=== PATIENT | male | born 1940 | race Caucasian/White ===

== ENCOUNTER 2022-02-11 14:50 | Observation (INO) | payer MEDICARE, SELFPAY ==
[2022-02-11] VITALS (17 sets, daily range): BP systolic 127–172; BP diastolic 63–82; PULSE 68–84; RESP 14–16; TEMP 36.6–37.1; O2SAT 93–97
--- NOTE | ~2022-02-11 | US_ITS ---
Procedure: Duplex Doppler examination of the bilateral carotids. Indication: Confusion Technique: Real time, color-flow and pulse wave Doppler examination of the bilateral carotids was performed. Findings: Phipps scale ultrasonography of the right neck demonstrated no significant plaque. There was demonstrat ion of normal color-flow and Doppler waveforms within the right common, internal and external carotid arteries. The peak systolic velocities in the right common, internal and external carotid arteries w ere demonstrated to be 91 cm/sec, 72 cm/sec and 100 cm/sec respectively. The right ICA/CCA ratio was 0.8. The proximal right internal carotid artery demonstrates 0% stenosis relative to the normal dista l artery lumen diameter. Phipps scale sonography of the left neck demonstrated no significant plaque. There was demonstration of normal color-flow and wave forms within the left common, internal and external carotid arteries. The peak systolic velocities in the left common, internal and external carotid arteries were demonstrate d to be 89cm/sec, 101 cm/sec and 123 cm/sec respectively. The left ICA/CCA ratio was 1.1. The proxima l left internal carotid artery demonstrates 0% stenosis relative to the normal distal artery lumen di ameter. There was antegrade flow demonstrated in the bilateral vertebral arteries. Impression: No hemodynamically significant stenosis of the bilateral internal carotid arteries. Antegrade flow in the bilateral vertebral arteries. Note: The methodology used is an indirect measurement validated against a direct method (such as the NASCET criteria) that compares diameters at the stenosis to the distal ICA. Reviewed, dictated and finalized at location [] ROPATHIC PHYSICIAN Impression: No hemodynamically significant stenosis of the bilateral internal carotid arter ies. Antegrade flow in the bilateral vertebral arteries. Note: The methodology used is an indirect measurement validated against a direct meth od (such as the NASCET criteria) that compares diameters at the stenosis to the distal ICA.
--- NOTE | ~2022-02-11 | XR_ITS ---
Clinical Indication: Altered mental status AP and lateral views of the chest: Comparison: None Findings: The lungs are clear, without evidence of focal consolidation or pleural effusion. Cardiome diastinal silhouette is within normal limits. Bones and soft tissues are unremarkable. Impression: Normal chest. Reviewed, dictated and finalized at location [] NG INSTRUCTOR Impression: Normal chest.
--- NOTE | ~2022-02-11 | US_ITS ---
Renal-Bladder ultrasound Clinical History: Acute renal failure Technique: Real-time sonographic imaging of the kidneys and urinary bladder was performed. Findings: The right kidney measures 11.0 cm in length and the left kidney measures 11.3 cm. There is no hydronephrosis or renal calculus identified. Renal cortical echogenicity is within normal limits. No centimeters solid renal mass lesion is identified. The urinary bladder is moderately distended at the time of this exam. No intraluminal echoes are iden tified. No abnormal wall thickening is seen. Prostate gland is enlarged, measuring 6.9 cm in transver se diameter. Impression: Unremarkable ultrasound of the kidneys and urinary bladder. Enlarged prostate gland. Reviewed, dictated and finalized at location [] ROOM SALESPERSON Impression: Unremarkable ultrasound of the kidneys and urinary bladder. Enlarged prostate gland.
--- NOTE | ~2022-02-11 | CT_ITS ---
EXAMINATION: CT brain wo con DATE: 02/11/2022 16:35 INDICATION: hallucinations . TECHNIQUE: Computed tomography (CT) of the head was performed without intravenous contrast. The mA wa s adjusted according to patient size. Iterative reconstruction technique was employed. The dose-lengt h product was 681.00 mGy-cm. COMPARISON: None. FINDINGS: No acute intracranial hemorrhage or extra-axial fluid collection. No hydrocephalus, mass, or herniation. No acute ischemic infarct. Unremarkable dural venous sinus attenuation. No acute osseous abnormality. Small right mastiod effusion, the remaining aerated spaces are clear. Mild atrophy and chronic white matter change. Atherosclerotic intracranial calcification. Right cochl ear implant. Right partial mastoidectomy. IMPRESSION: No acute intracranial process. Reviewed, dictated and finalized at location K. SHOE WORKER
--- NOTE | 2022-02-11 14:56 | ECG_ITS ---
Measurements Intervals [place] Rate: 68 P: 59 IL: 171 QRS: -61 QRSD: 108 T: 49 QT: 369 QTc: 395 Interpretive Statements SINUS RHYTHM LEFT ANTERIOR FASCICULAR BLOCK [QRS AXIS <= -45, QR IN I, RS IN II] MODERATE VOLTAGE CRITERIA FOR LVH, CONSIDER NORMAL VARIANT [MEETS CRITERIA IN ONE OF: R(aVL), S(V1), R(V5), R(V5/V6)+S(V1)] POOR R-WAVE PROGRESSION NO PREVIOUS ECG AVAILABLE FOR COMPARISON Electronically Signed On 02-11-2022 15:51:04 CONSERVATION WORKER by Barbara Cool M.D.
[2022-02-11 15:22] LABS: Basophils Absolute Auto 0.1 K/mm3 (0.0-0.1); Basophils Percent Auto 0.6 % (0.2-1.2); Eosinophils Percent Auto 0.2 % (0-4.4); Hematocrit 42.7 % (42.0-52.0); Hemoglobin 14.3 g/dL (14.0-18.0); Immature Granulocyte Absolute 0.04 K/mm3 (0.00-0.031); Immature Granulocyte Percent A 0.5 % (0-0.5); Lymphocytes Absolute Auto 1.24 K/mm3 (0.9-3.2); Lymphocytes Percent Auto 15.4 % (18.3-44.2); Mean Corpuscular HGB Conc 33.5 g/dl (32-36); Mean Corpuscular Hemoglobin 32.4 pg (26-34); Mean Corpuscular Volume 96.6 fl (80-100); Mean Platelet Volume 10.4 fl (7.4-10.4); Monocytes Absolute Auto 0.9 K/mm3 (0.1-0.6); Monocytes Percent Auto 11.4 % (2.6-8.5); Neutrophils Absolute Auto 5.8 K/mm3 (1.3-6.7); Neutrophils Percent Auto 71.9 % (45.5-73.1); Platelet Count Result 236 k/mm3 (150-375); Red Blood Count 4.42 M/mm3 (4.6-6.20); Red Cell Distribution Width 13.1 % (11.5-14.5)
[2022-02-11 15:34] LABS: Alanine Aminotransferase 15 U/L (6-50); Albumin Level 4.3 g/dL (3.5-5.1); Alkaline Phosphatase 71 U/L (38-126); Anion Gap 7 mmol/L (8-16); Aspartate Amino Transferase 24 U/L (17-59); Bilirubin,Total 0.6 mg/dL (0.2-1.3); Blood Urea Nitrogen 22 mg/dL (9-20); Calcium 8.6 mg/dL (8.4-10.2); Carbon Dioxide 26 mmol/L (22-30); Chloride 109 mmol/L (98-107); Estimated CRCL calculation 31 ml/min; Estimated Glomerular Filt Rate 39; Glucose 104 mg/dL (65-110); Potassium 3.8 mmol/L (3.4-5.0); Sodium 142 mmol/L (137-145)
[2022-02-11 15:35] LABS: INR 1.1; Prothrombin Time 13.7 Seconds (11.1-14.7)
[2022-02-11 15:36] LABS: Partial Thromboplastin Time 27.4 SECONDS (22.3-36.8)
--- NOTE | 2022-02-11 15:37 | ED.AMS ---
HPI - Altered Mental Status General Chief Complaint: Altered Mental Status Stated Complaint: confused, neuro Time Seen by Provider: 02/11/22 15:36 Source: family Mode of arrival: EMS Limitations: altered mental status History of Present Illness HPI narrative: Patient is an 81-year-old male with a history of BPH presenting to the emergency department for evaluation of auditory hallucinations. Patient states he has had hallucinations daily since his January 18. Patient reports he has not been sleeping well secondary to these hallucinations. He often will hear his talking to him, states that she cannot get into heaven. States that she wants to return. He says that a few nights ago she told him that she was at the front door and then when the patient went to the front door nobody was there. Patient reports decreased appetite since his passed. Patient states that he over the past few days has also started to hear another voice that he states is a 36-year-old female with children who is able to speak to him through his cochlear implants. He denies any homicidal or suicidal ideation. Patient states he has not been to a primary care physician in greater than a decade. 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 Patient's son and [id number] are present. Patient is currently alert and oriented to person, place, to time. He denies any acute discomfort or pain. He denies fever, chills, cough, shortness of breath. He denies any new medications. Related Data Allergies Allergy/AdvReac Type Severity Reaction Status Date / Time Sulfa (Sulfonamide Allergy Mild Verified 06/06/09 12:38 Antibiotics) Review of Systems Review of Systems: CONSTITUTIONAL: Denies fever, chills, or sweats. EYES: Denies visual changes, redness, or discharge. ENT: Denies rhinorrhea, congestion, sore throat, or otalgia. CARDIOVASCULAR: Denies chest pain, palpitations, or edema. RESPIRATORY: Denies cough or dyspnea. GASTROINTESTINAL: Denies abdominal pain, nausea, vomiting, or diarrhea. GENITOURINARY: Denies dysuria or hematuria. SKIN: Denies rash or itching. MUSCULOSKELETAL: Denies back pain, joint pain, or myalgia. NEUROLOGIC: Denies headache, numbness, or weakness. PSYCHIATRIC: Denies anxiety or depression. Reports auditory hallucinations. FOR[facility]LY [facility] Past Medical History Medical History (Updated 02/11/22 @ 19:17 by Vale Patel MD) BPH (benign prostatic hyperplasia) Cochlear implant in place Social History Social History (Updated 02/11/22 @ 16:14 by Vale Patel MD) Smoking status: Smoker, status unknown Alcohol intake: never Substance use: never Living arrangements: alone Occupation/Education: retired Gender identity (if verbalized by the patient): Male Exam Narrative: GENERAL: Awake, alert, conversant HEAD: Normocephalic, atraumatic. EYES: PERRLA and EOMI. ENT: Nares clear, no rhinorrhea or epistaxis. Mucous membranes moist. Cochlear implants bilaterally. NECK: Supple. CHEST: No respiratory distress, breathing even and non labored HEART: Regular rate, sinus rhythm ABDOMEN:Non distended, non tender EXTREMITIES: Normal range of motion. No edema. SKIN: Warm, dry, no rash. NEURO:No focal deficits. Alert and oriented x4, patient is ambulatory with a narrow base, steady gait Course Vital Signs Vital signs: Vital Signs Temperature 37.1 C 02/11/22 14:53 Pulse Rate 84 02/11/22 14:53 Respiratory Rate 14 02/11/22 14:53 Blood Pressure 172/79 H 02/11/22 14:53 Pulse Oximetry 97 02/11/22 14:53 Oxygen Delivery Room Air 02/11/22 14:53 Temperature 37.1 C 02/11/22 14:53 Pulse Rate 84 02/11/22 14:53 Respiratory Rate 14 02/11/22 14:53 Blood Pressure 134/63 02/11/22 17:46 Pulse Oximetry 97 02/11/22 18:02 Oxygen Delivery Room Air 02/11/22 14:53 MDM - Altered Mental Status MDM Narrative Medical decision m
--- NOTE | 2022-02-11 15:46 | PC.NURSE ---
EDP at bedside to assess pt. .
--- NOTE | 2022-02-11 16:26 | PC.NURSE ---
Patient off unit to CT>
[2022-02-11 17:33] LABS: Barbiturate Screen Urine Negative (Negative)
[2022-02-11 17:36] LABS: Amphetamine Screen Urine Negative (Negative); Benzodiazepines Screen Urine Negative (Negative); Cannabinoid Screen Urine Negative (Negative); Cocaine Screen Urine Negative (Negative); Methadone Screen Urine Negative (Negative); Opiate Screen Urine Negative (Negative); Phencyclidine Screen Urine Negative (Negative)
[2022-02-11 17:41] LABS: Add Urine Microscopic? YES; Appearance Urine Clear (Clear); Bilirubin Urine Negative (Negative); Blood Urine Negative (Negative); Color Urine Light Yellow (Yellow); Glucose Urine UA 1+ mg/dL (Negative); Ketones Urine Trace mg/dL (Negative); Leukocyte Esterase Ur Negative LEU/UL (Negative); Nitrate Urine Negative (Negative); Protein Urine Negative (Negative); Specific Grav Ur 1.025 (1.001-1.035); Urobilinogen Urine 0.2 mg/dL (<2.0); pH Urine 5.5 (5.0-9.0)
[2022-02-11 17:49] LABS: Mucus Urine Rare /lpf; Squamous Epithelial Cell Urine Rare /hpf (Few); WBC Urine 0-3 /hpf
[2022-02-11 18:01] LABS: Influenza A QL RT-PCR Negative (Negative); Influenza B QL RT-PCR Negative (Negative); RSV RNA, RT-PCR Negative (Negative); SARS-CoV-2 RNA PCR Negative
--- NOTE | 2022-02-11 20:19 | PC.NURSE ---
Dr. Chance at bedside to update to the family.
--- NOTE | 2022-02-11 21:01 | PC.NURSE ---
Hospitalist at bedside to assess pt.
--- NOTE | 2022-02-11 21:34 | PM.IMHP ---
H&P: HPI History of Present Illness Date/Time: 02/11/22 21:34 Chief Complaint: Auditory hallucination Narrative: This is an 81-year-old male patient who resides home alone. The patient came to the emergency room to be evaluated for auditory hallucinations. The patient stated that he has had these hallucinations since his January 18. The patient has not been sleeping very well due to the solution a stents. He often will hear his talking to him seeing that she cannot get in to have an. She wants to return home. Patient has had decreased appetite decreased sleep since his . He also stated that he was another voice of a 36-year-old female patient with children who wants to speak to him through his cochlear implant. He denies any homicidal or suicidal ideation. However the patient stated that he does cry every day since his . 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 The patient has tried multiple things to try to sleep including Ambien and melatonin as well as nighttime Tylenol and has not been able to sleep. The patient has not seen a physician for over 10 years. He does not have a primary care doctor. The patient will like to go to grief therapy but does not have a primary care doctor to refer him to the group therapy. patient's creatinine is 1.70. The patient stated he has had several biopsies on his prostate x5 and they were all negative. The patient states that he sees the urologist once a year and is given his doxazosin for his BPH. Head CT was read as no acute intracranial process. The patient is being admitted to observation status on the date of service of 02/11/2022. Review of Systems Review of Systems: See HPI All systems reviewed & are unremarkable except as noted in HPI and below Constitutional: Constitutional: Reports as per HPI and Reports no additional constitutional complaints Eyes: Eyes: Reports as per HPI and Reports no additional eye complaints ENT: Reports system reviewed and no additional complaints, except as documented and Reports Normal hearing present Cardiovascular: Cardiovascular: Reports no additional cardiovascular complaints Respiratory: Respiratory: Reports no additional respiratory complaints and Reports no additional respiratory complaints Gastrointestinal: Gastrointestinal: Reports as per HPI and Reports no additional gastrointestinal complaints Musculoskeletal: Musculoskeletal: Reports no additional musculoskeletal complaints Integumentary/Breasts: Skin/Breast: Reports system reviewed and no additional complaints, except as docu and Reports as per HPI Neurologic: Reports system reviewed and no additional complaints, except as documented, Reports as per HPI and Reports Normal hearing present Psychiatric: Psychiatric: Reports no additional psychiatric complaints and Reports as per HPI Endocrine: Endocrine: Reports no additional endocrine complaints Hematologic/Lymphatic: Hematologic/Lymphatic: Reports no additional hematologic/lymphatic complaints Allergic/Immunologic: Allergic/Immunologic: Reports no additional allergic/immunologic complaints PMFSH Past Medical History Medical History (Updated 02/11/22 @ 23:19 by Roslyn Huddleston NP) BPH (benign prostatic hyperplasia) Cochlear implant in place History of kidney stones HTN (hypertension) with goal to be determined Surgical History Surgical History (Updated 02/11/22 @ 23:08 by Roslyn Huddleston NP) H/O cystoscopy Stone extraction H/O inguinal hernia repair H/O lithotripsy History of ureter stent Family History Family History (Updated 02/11/22 @ 23:09 by Roslyn Huddleston NP) Father Malignant neoplasm of prostate Sibling Malignant neoplasm of prostate Social History Social History (Updated 02/11/22 @ 23:11 by Roslyn Huddleston NP) Social History: The patient lives home alone. The patient is now his this
--- NOTE | 2022-02-11 22:30 | ADMGEN ---
This patient, Obey Jameson, was admitted to 3 [facility] Surg Room 307-01. Patient/family oriented to hospital policies and general routines including ID bracelet, bed and alarms, visiting hours, pain management, procedures, bathroom and other care routines, personal items, smoking policy, room service/diet, and visiting hours. Information on how to activate the Rapid Response Team has been discussed. Patient/Family are encouraged to report perceived risks to care and to ask questions if they do not understand what they are told or what they should do.
--- NOTE | 2022-02-12 | ECHO_ITS ---
Patient Info Name: Obey Jameson Age: 81 years : 1940 Gender: Male Ht: 70 in Wt: 200 lbs BSA: 2.14 m2 HR: 68 bpm BP: 127 / 68 mmHg Technical Quality: Fair Exam Date: 02/12/2022 9:30 AM Exam Location: [facility] Pulmonary Exam Room: [facility] Patient Status: Outpatient Admit Date: 02/11/2022 Staff Ordering Physician: Roslyn Huddleston NP City Superintendent: Erinn Wilson RCS Attending Provider: Harry Underwood MD Referring Physician: Flaquito HINDS; Exam Type: CA echo doppler color flow Study Info Indications - murmur Complete two-dimensional, color flow and Doppler transthoracic echocardiogram is performed. Summary 1. Complete two-dimensional, color flow and Doppler transthoracic echocardiogram is performed. 2. Left ventricular chamber dimension is moderately enlarged. 3. Left ventricular systolic function is normal, estimated at 60-65%. 4. The left ventricular diastolic function is grade I diastolic dysfunction. 5. E/e' 9 is minimally elevated. 6. Left atrial chamber dimension is moderately enlarged. 7. There is mild aortic valve sclerosis. 8. There is mild to moderate aortic valve regurgitation. 9. The mitral valve has moderately calcified annulus. 10. There is mild mitral valve regurgitation. 11. No pulmonary hypertension, estimated pulmonary arterial systolic pressure is 26 mmHg. 12. There is trace pulmonic regurgitation. Left Ventricle E/e' 9 is minimally elevated. Left ventricular chamber dimension is moderately enlarged. Left ventricular systolic function is normal, estimated at 60-65%. The left ventricular diastolic function is grade I diastolic dysfunction. Right Ventricle Right ventricular systolic function is normal and with normal TAPSE 2.5 cm. Right ventricular chamber dimension is normal. Left Atria Left atrial chamber dimension is moderately enlarged. Right Atria Right atrial chamber dimension is normal. Aortic Valve The aortic valve is trileaflet. There is mild aortic valve sclerosis. There is no aortic valve stenosis. There is mild to moderate aortic valve regurgitation. Pulmonic Valve There is trace pulmonic regurgitation. Mitral Valve The mitral valve has moderately calcified annulus. There is no mitral valve stenosis. There is mild mitral valve regurgitation. Tricuspid Valve There is no tricuspid valve regurgitation. No pulmonary hypertension, estimated pulmonary arterial systolic pressure is 26 mmHg. Pericardium/Pleural There is no pericardial effusion. Inferior Vena Cava Normal inferior vena cava with >50% collapse upon inspiration consistent with normal right atrial pressure, 5 mmHg. Aorta The aortic root size at the sinus of Valsalva is normal. Left Ventricular Outflow Tract Name Value Normal LVOT 2D LVOT Diameter 2.1 cm LVOT Doppler LVOT Peak Gradient 5 mmHg LVOT Mean Gradient 3 mmHg LVOT VTI 27 cm LVOT VTI/AV VTI Ratio 0.9 LVOT Stroke Volume 90 ml LVOT CO
[2022-02-12] MEDS: DOXAZOSIN MESYLATE 4 MG TABLET PO ×2 (01:31→21:48)
[2022-02-12] MEDS: SODIUM CHLORIDE 0.9% IV 1,000 ML 100 ML IV CONT (01:31)
[2022-02-12] MEDS: ACETAMINOPHEN 325 MG TABLET 650 MG PO (01:32)
[2022-02-12] MEDS: traZODone HCL 50 MG TABLET PO ×2 (01:32→21:48)
[2022-02-12 06:00] VITALS: BP 130/45; PULSE 53; RESP 16; TEMP 35.9; O2SAT 96
[2022-02-12 06:42] LABS: Basophils Percent Auto 0.5 % (0.2-1.2); Eosinophils Absolute Auto 0.1 K/mm3 (0-0.3); Eosinophils Percent Auto 1.4 % (0-4.4); Hematocrit 36.7 % (42.0-52.0); Immature Granulocyte Absolute 0.02 K/mm3 (0.00-0.031); Immature Granulocyte Percent A 0.3 % (0-0.5); Lymphocytes Absolute Auto 1.82 K/mm3 (0.9-3.2); Lymphocytes Percent Auto 28.3 % (18.3-44.2); Mean Corpuscular HGB Conc 32.7 g/dl (32-36); Mean Corpuscular Hemoglobin 31.5 pg (26-34); Mean Corpuscular Volume 96.3 fl (80-100); Mean Platelet Volume 10.9 fl (7.4-10.4); Monocytes Absolute Auto 0.8 K/mm3 (0.1-0.6); Monocytes Percent Auto 11.6 % (2.6-8.5); Neutrophils Absolute Auto 3.7 K/mm3 (1.3-6.7); Neutrophils Percent Auto 57.9 % (45.5-73.1); Platelet Count Result 200 k/mm3 (150-375); Red Blood Count 3.81 M/mm3 (4.6-6.20); White Blood Count 6.4 K/mm3 (4.5-10.0)
[2022-02-12 06:52] LABS: Alanine Aminotransferase 11 U/L (6-50); Alkaline Phosphatase 53 U/L (38-126); Anion Gap 2 mmol/L (8-16); Aspartate Amino Transferase 18 U/L (17-59); Bilirubin,Total 0.6 mg/dL (0.2-1.3); Blood Urea Nitrogen 17 mg/dL (9-20); Calcium 7.2 mg/dL (8.4-10.2); Carbon Dioxide 24 mmol/L (22-30); Chloride 110 mmol/L (98-107); Estimated CRCL calculation 47 ml/min; Estimated Glomerular Filt Rate > 60; Glucose 89 mg/dL (65-110); Magnesium 1.9 mg/dL (1.6-2.3); Potassium 3.2 mmol/L (3.4-5.0); Sodium 136 mmol/L (137-145)
[2022-02-12] MEDS: POTASSIUM CHLORIDE 20 MEQ TABLET 40 MEQ PO ×2 (08:41→17:29)
--- NOTE | 2022-02-12 11:43 | WPDNEURCNPN ---
Assessment and Plan Assessment and plan (1) Auditory hallucination: Code(s): R44.0 - Auditory hallucinations Status: Acute Plan auditory hallucination with resulting comfort and insomnia in addition to ongoing metabolic problem also history of underlying benign essential tremor at present is taking trazodone 50 mg HS I will add the Zyprexa 2.5 mg daily and obtain the EEG Consult date: 02/12/22 HPI: Obey Jameson is a 81 year old male admitted to the hospital through the emergency room for the complaints of increasing confusion in addition to the ongoing history of 1. Benign prostatic hypertrophy and also statement by the patient as well that he has been experiencing auditory hallucinations since his has in December of 2019 reportedly he has not been sleeping well his has been talking to him she wants to return few nights ago she told him that she is at the front door he went to the front door nobody was there he also have additionally appetite loss recently he has been hearing the 36 years old females sounds allergic to sulfa, is not a drinker not a smoker initial examination in the Emergency Room otherwise was nonfocal including normal vital signs except blood pressure of 172/79 basic metabolic panel was normal so as the CBC and drug screen was negative in addition to negative testing for the influenza and starts COVID chest x-ray was negative EKG without any atrial fibrillation Doppler study of the carotid normal and head CT scan negative for the bleed or major territorial stroke Review of Systems Review of Systems: All systems reviewed & are unremarkable except as noted in HPI and below PMFSH Past Medical History Medical History (Updated 02/11/22 @ 23:19 by Roslyn Huddleston NP) BPH (benign prostatic hyperplasia) Cochlear implant in place History of kidney stones HTN (hypertension) with goal to be determined Surgical History Surgical History (Updated 02/11/22 @ 23:08 by Roslyn Huddleston NP) H/O cystoscopy Stone extraction H/O inguinal hernia repair H/O lithotripsy History of ureter stent Family History Family History (Updated 02/11/22 @ 23:09 by Roslyn Huddleston NP) Father Malignant neoplasm of prostate Sibling Malignant neoplasm of prostate Social History Social History (Updated 02/11/22 @ 23:11 by Roslyn Huddleston NP) Social History: The patient lives home alone. The patient is now his this past December. He has 1 son and he has 2 living daughters. He had 1 daughter from suicide. The patient is retired from [employer]. He is a former smoker. He does not drink any alcohol use any marijuana or illicit drugs. -code status full code Smoking status: Former smoker Alcohol intake: never Substance use: never Lack of Transportation: No Lack of Food: Never True Current Housing: I Have Housing Concerned About Future Housing: No Difficulty Paying Gas/Electric Bills: No Difficulty Paying for Meds: No Currently Unemployed: No Education: High School Diploma/GED Difficulty w/ Childcare or Family Care: No Living arrangements: alone Occupation/Education: retired Gender identity (if verbalized by the patient): Male Spiritual care concerns: No Meds Home Medications and Allergies Home Medications Medication Instructions Recorded Confirmed Type doxazosin 4 mg tablet 4 mg PO HS 02/11/22 02/11/22 History Allergies Allergy/AdvReac Type Severity Reaction Status Date / Time Sulfa (Sulfonamide Allergy Mild Verified 06/06/09 12:38 Antibiotics) Vital Signs Vital Signs - 24 hr 02/11/22 14:53 02/11/22 17:31 02/11/22 17:32 Temperature 37.1 C Pulse Rate 84 Respiratory Rate 14 Blood Pressure 172/79 H 155/82 H Pulse Oximetry 97 93 97 Oxygen Delivery Room Air 02/11/22 17:41 02/11/22 17:45 02/11/22 17:46 Temperature Pulse Rate Respiratory Rate Blood
--- NOTE | 2022-02-12 12:37 | PM.IMPN ---
Progress Note: A&P Assessment and Plan (1) Auditory hallucination: Code(s): R44.0 - Auditory hallucinations Status: Acute Assessment and Plan: Patient with auditory hallucinations that are new. Recently lost , last month he reports. Question acute grief reaction. - Appreciate neurology recs, they will be starting zyprexa, obtaining EEG. - dye and chemical coordinator arranging for [facility] with weekly psychiatry, the patient denies SI/HI and outpatient f/u is reasonable. - No obvious infectious etiology or confounding findings to suggest metabolic cause. Carotid duplex u/s no significant flow limitations. (2) ARF (acute renal failure): Code(s): N17.9 - Acute kidney failure, unspecified Status: Acute Assessment and Plan: - He notes poor intake recently. - Renal u/s unremarkable. - Improved markedly with creatinine 1.7 to 1.1 with IVF overnight. - DC IVF - ensure oral intake sufficient overnight and labs stable. (3) BPH (benign prostatic hyperplasia): Code(s): N40.0 - Benign prostatic hyperplasia without lower urinary tract symptoms Status: Acute Assessment and Plan: - Cont. doxazosin. (4) Benign essential tremor: Code(s): G25.0 - Essential tremor Status: Acute Plan Repeat labs in the am. Working on outpatient psych f/u. Likely discharge in the next 24-48 hours. Time Spent With Patient Time with patient: 25 - 35 minutes Subjective Date/time seen: 02/12/22 12:37 Interval history: Obey is pleasant and conversant this morning states he has no homicidal or suicidal ideation but does continue to hear the voices. He notes that the voices are more common when it is quiet and there is no distracting events. Obey also notes that he is concerned that his cellular phone is recording activity and feeding into his cochlear implant. Review of Systems Review of Systems: All systems reviewed & are unremarkable except as noted in HPI and below Constitutional: Constitutional: Reports no additional constitutional complaints Cardiovascular: Cardiovascular: Reports no additional cardiovascular complaints Respiratory: Respiratory: Reports no additional respiratory complaints Gastrointestinal: Gastrointestinal: Reports no additional gastrointestinal complaints Exam Narrative: GENERAL APPEARANCE: Appears to be in no acute distress. HEAD: normocephalic atraumatic EYES: PERRL, EOMI. Vision grossly intact. ENT: Hearing grossly intact, no nasal discharge NECK: Neck supple, trachea midline. CARDIAC: Normal S1/S2. Rhythm is regular. No murmurs, rubs, or gallops. No cyanosis or pallor. Extremities are warm and well perfused. LUNGS: Clear to auscultation without rales, rhonchi, wheezing or diminished breath sounds. Respirations even and unlabored. ABDOMEN: BS positive x 4 quadrants. Soft, nondistended, nontender. No guarding or rebound. MSK: No joint tenderness/swelling, fair strength in all extremities. PERIPHERAL VASCULAR: Peripheral pulses palpable. Normal perfusion, cap refill <2 seconds. No edema. NEURO: Follows commands. No focal deficits. SKIN: [place] without lesions or eruptions. PSYCH: Endorses hearing voices when it is quiet. Denies SI, denies HI. Calm and cooperative. Objective Data Vital Signs Vital Signs: Vital Signs - 24 hr 02/11/22 14:53 02/11/22 17:31 02/11/22 17:32 Temperature 98.8 F Pulse Rate 84 Respiratory Rate 14 Blood Pressure 172/79 H 155/82 H Pulse Oximetry 97 93 97 Oxygen Delivery Room Air 02/11/22 17:41 02/11/22 17:45 02/11/22 17:46 Temperature Pulse Rate Respiratory Rate Blood Pressure 155/82 H 134/63 Pulse Oximetry 97 97 94 Oxygen Delivery 02/11/22 17:47 02/11/22 18:02 02/11/22 19:01 Temperature Pulse Rate Respiratory Rate Blood Pressure 163/68 H Pulse Oximetry 96 97 Oxygen Delivery 02/11/22 19:32 02/11/22 20:01 02/11/22 20:37 Temperature Pulse Rate Respiratory Rat
[2022-02-12 14:00] VITALS: BP 132/81; PULSE 62; RESP 16; TEMP 36.1; O2SAT 97
[2022-02-12] MEDS: OLANZapine 2.5 MG TABLET PO (15:16)
[2022-02-12 20:00] VITALS: O2SAT 97
--- NOTE | 2022-02-12 20:57 | PC.NURSE ---
called pharmacy for pt trazodone 50 mg po awaiting arrival of medication
[2022-02-12 22:00] VITALS: BP 134/56; PULSE 55; RESP 16; TEMP 36.3; O2SAT 94
[2022-02-13 06:00] VITALS: BP 132/62; PULSE 57; RESP 16; TEMP 36.3; O2SAT 97
[2022-02-13 07:03] LABS: Mean Corpuscular HGB Conc 34.1 g/dl (32-36); Mean Corpuscular Hemoglobin 32.2 pg (26-34); Mean Corpuscular Volume 94.3 fl (80-100); Mean Platelet Volume 10.9 fl (7.4-10.4); Platelet Count Result 227 k/mm3 (150-375); Red Blood Count 4.35 M/mm3 (4.6-6.20); White Blood Count 7.9 K/mm3 (4.5-10.0)
[2022-02-13 07:14] LABS: Alanine Aminotransferase 13 U/L (6-50); Albumin Level 3.7 g/dL (3.5-5.1); Alkaline Phosphatase 66 U/L (38-126); Anion Gap 6 mmol/L (8-16); Aspartate Amino Transferase 22 U/L (17-59); Bilirubin,Total 0.7 mg/dL (0.2-1.3); Blood Urea Nitrogen 14 mg/dL (9-20); Calcium 8.5 mg/dL (8.4-10.2); Carbon Dioxide 27 mmol/L (22-30); Chloride 105 mmol/L (98-107); Estimated CRCL calculation 43 ml/min; Estimated Glomerular Filt Rate 58; Glucose 99 mg/dL (65-110); Potassium 3.9 mmol/L (3.4-5.0); Sodium 138 mmol/L (137-145)
[2022-02-13] MEDS: OLANZapine 2.5 MG TABLET PO (08:36)
[2022-02-13 11:02] VITALS: BMI 28.7
--- NOTE | 2022-02-13 12:42 | PM.IMPN ---
Progress Note: A&P Assessment and Plan (1) Auditory hallucination: Code(s): R44.0 - Auditory hallucinations Status: Acute Assessment and Plan: Patient with auditory hallucinations that are new. Recently lost , last month he reports. Question acute grief reaction. - Appreciate neurology recs, they will be starting zyprexa, obtaining EEG. - store coordinator arranging for [facility] with weekly psychiatry, the patient denies SI/HI and outpatient f/u is reasonable. - No obvious infectious etiology or confounding findings to suggest metabolic cause. Carotid duplex u/s no significant flow limitations. (2) ARF (acute renal failure): Code(s): N17.9 - Acute kidney failure, unspecified Status: Acute Assessment and Plan: - He notes poor intake recently. - Renal u/s unremarkable. - Improved markedly with creatinine 1.7 to 1.1 with IVF overnight. - DC IVF - ensure oral intake sufficient overnight and labs stable. (3) BPH (benign prostatic hyperplasia): Code(s): N40.0 - Benign prostatic hyperplasia without lower urinary tract symptoms Status: Acute Assessment and Plan: - Cont. doxazosin. (4) Benign essential tremor: Code(s): G25.0 - Essential tremor Status: Acute Plan Repeat labs in the am. Working on outpatient psych f/u. Likely discharge in the next 24-48 hours. Subjective Date/time seen: 02/13/22 12:42 Patient was seen during the morning rounds today. No new overnight complaints. No sob or chest pain. Mood stable Review of Systems Review of Systems: All systems reviewed & are unremarkable except as noted in HPI and below Constitutional: Constitutional: Reports as per HPI and Reports no additional constitutional complaints Eyes: Eyes: Reports as per HPI and Reports no additional eye complaints ENT: Reports system reviewed and no additional complaints, except as documented and Reports Normal hearing present Cardiovascular: Cardiovascular: Reports no additional cardiovascular complaints Respiratory: Respiratory: Reports no additional respiratory complaints and Reports no additional respiratory complaints Gastrointestinal: Gastrointestinal: Reports as per HPI and Reports no additional gastrointestinal complaints Musculoskeletal: Musculoskeletal: Reports no additional musculoskeletal complaints Integumentary/Breasts: Skin/Breast: Reports system reviewed and no additional complaints, except as docu and Reports as per HPI Neurologic: Reports system reviewed and no additional complaints, except as documented, Reports as per HPI and Reports Normal hearing present Psychiatric: Psychiatric: Reports no additional psychiatric complaints and Reports as per HPI Endocrine: Endocrine: Reports no additional endocrine complaints Hematologic/Lymphatic: Hematologic/Lymphatic: Reports no additional hematologic/lymphatic complaints Allergic/Immunologic: Allergic/Immunologic: Reports no additional allergic/immunologic complaints Exam Narrative: GENERAL APPEARANCE: Appears to be in no acute distress. HEAD: normocephalic atraumatic EYES: PERRL, EOMI. Vision grossly intact. ENT: Hearing grossly intact, no nasal discharge NECK: Neck supple, trachea midline. CARDIAC: Normal S1/S2. Rhythm is regular. No murmurs, rubs, or gallops. No cyanosis or pallor. Extremities are warm and well perfused. LUNGS: Clear to auscultation without rales, rhonchi, wheezing or diminished breath sounds. Respirations even and unlabored. ABDOMEN: BS positive x 4 quadrants. Soft, nondistended, nontender. No guarding or rebound. MSK: No joint tenderness/swelling, fair strength in all extremities. PERIPHERAL VASCULAR: Peripheral pulses palpable. Normal perfusion, cap refill <2 seconds. No edema. NEURO: Follows commands. No focal deficits. SKIN: [place] without lesions or eruptions. PSYCH: Endorses hearing voices when it is quiet. Denies SI, denies HI. Calm and cooperative. Const: General: cooperative
--- NOTE | 2022-02-13 12:48 | PC.NURSE ---
This rn spoke to pt's son regarding pt's status.
--- NOTE | 2022-02-13 13:48 | PM.DS ---
DS: Admitting Diagnosis Discharge Date 02/13/2022 Admitting Diagnosis Auditory Hallucination DS: Discharge Diagnosis Discharge Diagnosis (1) Auditory hallucination: Code(s): R44.0 - Auditory hallucinations Status: Acute Assessment and Plan: Patient with auditory hallucinations that are new. Recently lost , last month he reports. Question acute grief reaction. - Appreciate neurology recs, they will be starting zyprexa, obtaining EEG. - banquet coordinator arranging for [facility] with weekly psychiatry, the patient denies SI/HI and outpatient f/u is reasonable. - No obvious infectious etiology or confounding findings to suggest metabolic cause. Carotid duplex u/s no significant flow limitations. (2) ARF (acute renal failure): Code(s): N17.9 - Acute kidney failure, unspecified Status: Acute Assessment and Plan: - He notes poor intake recently. - Renal u/s unremarkable. - Improved markedly with creatinine 1.7 to 1.1 with IVF overnight. - DC IVF - ensure oral intake sufficient overnight and labs stable. (3) BPH (benign prostatic hyperplasia): Code(s): N40.0 - Benign prostatic hyperplasia without lower urinary tract symptoms Status: Acute Assessment and Plan: - Cont. doxazosin. (4) Benign essential tremor: Code(s): G25.0 - Essential tremor Status: Acute Plan Repeat labs in the am. Working on outpatient psych f/u. Likely discharge in the next 24-48 hours. DS: Summary Hospital Course Hospital Course: 81 years old male was admitted with complaint of auditory hallucination. Patient was found to have mild insufficiency. Patient workup was negative. Neurology was consulted. Workup was negative. After discussion with family patient discharged home under the care of his son. EEG will be followed as an outpatient. Status at Discharge Cognitive/behavioral status at discharge: Stable Time Spent with Patient Time attestation: Total time spent providing and/or coordinating discharge services: Exam Narrative: GENERAL APPEARANCE: Appears to be in no acute distress. HEAD: normocephalic atraumatic EYES: PERRL, EOMI. Vision grossly intact. ENT: Hearing grossly intact, no nasal discharge NECK: Neck supple, trachea midline. CARDIAC: Normal S1/S2. Rhythm is regular. No murmurs, rubs, or gallops. No cyanosis or pallor. Extremities are warm and well perfused. LUNGS: Clear to auscultation without rales, rhonchi, wheezing or diminished breath sounds. Respirations even and unlabored. ABDOMEN: BS positive x 4 quadrants. Soft, nondistended, nontender. No guarding or rebound. MSK: No joint tenderness/swelling, fair strength in all extremities. PERIPHERAL VASCULAR: Peripheral pulses palpable. Normal perfusion, cap refill <2 seconds. No edema. NEURO: Follows commands. No focal deficits. SKIN: [place] without lesions or eruptions. PSYCH: Endorses hearing voices when it is quiet. Denies SI, denies HI. Calm and cooperative. Const: General: cooperative, healthy appearing, comfortable, no acute distress, well developed, alert, awake, Physically active, average body habitus and well nourished Nutritional Appearance: average body habitus and well nourished Orientation/consciousness: oriented to person, oriented to place, oriented to time and patient oriented x3 Limitations: no limitations HENMT: Head: normal to inspection, No palpable skull fracture present, normocephalic and atraumatic Ears: hearing grossly normal bilaterally, external ears normal and hearing grossly impaired Face/Nose/Sinus: Normal external nose present and Normal nares present Eyes: General: appearance normal, both eyes and all related structures Alignment and Position: alignment normal Periorbital: periorbital findings normal Eyelids: eyelids normal Conjunctivae: conjunctivae normal Sclera: sclerae normal Cornea: corneas normal Pupils: Equal, round and reactive pupils present and Pupil accommodation ref
--- NOTE | 2022-02-19 10:49 | WPDNEUROLOGY ---
Neurology EEG Report General Information Date of Study: 02/13/22 TEST EEG DIAGNOSIS auditory hallucinations CONDITION OF RECORDING awake and drowsy EEG NUMBER [id number] CLINICAL HISTORY patient is hearing voices that her interpreting his life to him EEG DESCRIPTION basic resting occipital frequency consists of low-voltage 9 to 11 hertz per 2nd alpha admixed with low-voltage 15 to 18 hertz per 2nd beta. Bilateral symmetrical low-voltage beta activity seen diffusely during drowsiness in addition to the regular EKG artifact. Hyperventilation not done. Non paroxysmal. Nonfocal. Nonlateralizing. IMPRESSION No significant abnormalities noted
== END 2022-02-13 14:20 | disposition other institution (70) ==
LOC: ANHED 19:17 → ANH3MEDSUR 02-12 12:06
PROVIDERS: Nurse Practitioner; Admitting Provider Internal Medicine; Emergency Provider Emergency Medicine; Visit Provider Nurse Practitioner Family
DX: R44.0 Auditory hallucinations (principal); N17.9 Acute kidney failure, unspecified; N40.0 Benign prostatic hyperplasia without lower urinary tract symptoms; G25.0 Essential tremor; G47.00 Insomnia, unspecified; R63.0 Anorexia; Z68.28 Body mass index [BMI] 28.0-28.9, adult; Z96.21 Cochlear implant status; I10 Essential (primary) hypertension; E88.9 Metabolic disorder, unspecified; I08.0 Rheumatic disorders of both mitral and aortic valves; R79.89 Other specified abnormal findings of blood chemistry; R94.31 Abnormal electrocardiogram [ECG] [EKG]; R90.82 White matter disease, unspecified; Z20.822 Contact with and (suspected) exposure to COVID-19; Z87.891 Personal history of nicotine dependence; Z79.899 Other long term (current) drug therapy
CPT/HCPCS: 36415; 70450; 71046; 76775; 80053; 80307; 81001; 83735; 84443; 85025; 85027; 85610; 85730; 87637; 93005; 93306; 93880; 95816; 99285; A9270; G0378; J7030

== ENCOUNTER 2022-02-26 13:39 | Outpatient (CLI) | payer MEDICARE, SELFPAY ==
[2022-02-26 14:06] LABS: Basophils Absolute Auto 0.04 K/mm3 (0.00-0.10); Basophils Percent Auto 0.6 % (0.0-1.0); Eosinophils Absolute Auto 0.04 K/mm3 (0.02-0.50); Eosinophils Percent Auto 0.6 % (1.0-6.0); Hematocrit 43.7 % (37.0-46.0); Hemoglobin 14.4 g/dL (12.4-15.3); Immature Granulocyte Absolute 0.01 K/mm3 (0.00-0.00); Immature Granulocyte Percent A 0.1 % (0.0-0.0); Lymphocytes Absolute Auto 1.34 K/mm3 (1.10-4.50); Mean Corpuscular Hemoglobin 31.4 pg (27.0-31.0); Mean Corpuscular Volume 95.4 fL (78.0-102.0); Mean Platelet Volume 10.8 fl (8.7-11.0); Monocytes Absolute Auto 0.58 K/mm3 (0.10-0.90); Monocytes Percent Auto 8.6 % (2.0-11.0); Neutrophils Absolute Auto 4.7 K/mm3 (1.7-7.2); Neutrophils Percent Auto 70.1 % (50.0-70.0); Platelet Count Result 236 K/mm3 (150-420); Red Blood Count 4.58 M/mm3 (4.70-6.10); Red Cell Distribution Width 12.8 % (11.6-14.4); White Blood Count 6.7 K/mm3 (4.8-10.8)
--- NOTE | 2022-02-26 14:10 | ECG_ITS ---
Measurements Intervals [place] Rate: 69 P: 74 [place]: 171 QRS: -69 QRSD: 105 T: 64 QT: 374 QTc: 402 Interpretive Statements SINUS RHYTHM LEFT ANTERIOR FASCICULAR BLOCK [QRS AXIS <= -45, QR IN I, RS IN II] MODERATE VOLTAGE CRITERIA FOR LVH, CONSIDER NORMAL VARIANT [MEETS CRITERIA IN ONE OF: R(aVL), S(V1), R(V5), R(V5/V6)+S(V1)] ABNORMAL ECG COMPARED TO ECG 02/11/2022 15:11:05 NO SIGNIFICANT CHANGES Electronically Signed On 02-27-2022 14:34:42 [facility] by Rodrigo Banda M.D.
[2022-02-26 14:49] LABS: Alanine Aminotransferase 15 U/L (16-63); Albumin Level 3.8 g/dL (3.4-5.0); Alkaline Phosphatase 76 U/L (46-116); Anion Gap 6 mmol/L (8-16); Aspartate Amino Transferase 15 U/L (15-37); Bilirubin,Total 0.5 mg/dL (0.00-1.00); Blood Urea Nitrogen 18 mg/dL (7-18); Calcium 8.5 mg/dL (8.5-10.1); Carbon Dioxide 31 mmol/L (21-32); Chloride 105 mmol/L (98-108); Cholesterol 199 mg/dL (0-200); Estimated Glomerular Filt Rate 49; Glucose 120 mg/dL (70-99); HDL Direct 50 mg/dL (40-60); LDL Cholesterol Calculated 124 mg/dL (<130); Osmolality Calculated 296 mOsm/kg (285-295); Potassium 3.8 mmol/L (3.5-5.1); Sodium 142 mmol/L (136-145); Total Protein 6.9 g/dL (6.4-8.2); Triglycerides 127 mg/dL (0-150)
== END 2022-02-26 13:40 | disposition home or self-care (01) ==
PROVIDERS: PCP Psychiatry & Neurology Psychiatry; Visit Provider Psychiatry & Neurology Psychiatry
DX: Z79.899 Other long term (current) drug therapy (principal); R94.31 Abnormal electrocardiogram [ECG] [EKG]
CPT/HCPCS: 36415; 80053; 80061; 85025; 93005

== ENCOUNTER 2022-03-05 09:34 | Outpatient (CLI) | payer MEDICARE, SELFPAY ==
[2022-03-05 09:50] LABS: Creatinine Urine 88.94 mg/dL (40-278)
[2022-03-05 09:58] LABS: Creatinine 24 Hour Urine 1.02 g/24 hr (0.95-2.49); Total Volume 24 Hour Urine 1150 ml
[2022-03-05 17:21] LABS: Collection Time Urine 24 HOURS
[2022-03-05 17:23] LABS: Creatinine Clearance Urine 42.5 ml/min (97-137); Creatinine Urine 88.94 mg/dL (40-278); Patient Weight 200 Lbs; Serum Creat 1.39; Total Volume 24 Hour Urine 1150 ml
== END 2022-03-05 09:35 | disposition home or self-care (01) ==
LOC: CHSLAB 09:36
PROVIDERS: Visit Provider Psychiatry & Neurology Psychiatry
DX: Z79.899 Other long term (current) drug therapy (principal)
CPT/HCPCS: 81050; 82570; 82575

== ENCOUNTER 2022-04-30 10:00 | Outpatient (RCR) | payer MEDICARE, SELFPAY | END 2022-05-07 14:00 | disposition home or self-care (01) | LOC: CHSSENLIFE 10:00 | PROVIDERS: PCP Psychiatry & Neurology Psychiatry; Visit Provider Psychiatry & Neurology Psychiatry | DX: F23 Brief psychotic disorder (principal); F32.1 Major depressive disorder, single episode, moderate | CPT/HCPCS: 36415; 80053; 80061; 81050; 82570; 82575; 85025; 90792; 90837; 90853; 93005; 99214; G0463 ==

== ENCOUNTER 2023-02-06 22:04 | Observation (INO) | payer MEDICARE, SELFPAY ==
--- NOTE | ~2023-02-06 | CT_ITS ---
EXAMINATION: CT abd pelvis lumbar w con INDICATION: Abdominal and low back pain TECHNIQUE: Computed tomographic images of the abdomen, pelvis, and lumbar spine were obtained after t he administration of 100 cc of Omnipaque 350 intravenous contrast. The dose-length product (DLP) was 526.96 mGy-cm. Automated exposure control and iterative reconstruction technique were employed. COMPARISON: None available FINDINGS: Abdomen/pelvis: Minimal dependent atelectasis is present in the lung bases. The heart size is normal. The liver, spleen, pancreas, and left adrenal gland are normal. Stones are present in the nondistend ed gallbladder. There is a 1.4 cm soft tissue attenuation mass of the right adrenal gland. Nonobstruc ting stones of the left kidney measure up to 6 mm in the lower pole. The right kidney is unremarkable . There is marked enlargement of the prostate. A moderate volume of colonic stool is present. There a re surgical changes in the left inguinal region. There is a small left inguinal hernia containing a s hort segment of nonobstructed colon. There is a right inguinal hernia containing a short segment of n onobstructed small bowel. Lumbar spine: There are 2 mm of retrolisthesis of L4 on L5. The vertebral body heights are normal. Th ere is severe loss of intervertebral disc space height at L2-3, L3-4, and moderate loss of interverte bral disc space height at L4-5. There is no fracture. There is mild facet joint osteoarthritis. IMPRESSION: 1. Bilateral inguinal hernias with short segment of nonobstructed colon and in the left inguinal grayson ia and a short segment of nonobstructed small bowel in the right inguinal hernia. 2. Cholelithiasis without evidence of cholecystitis. 3. Left nephrolithiasis, nonobstructing. 4. Severe lumbar spondylosis without acute findings. 5. 1.4 cm right adrenal nodule, likely adenoma. If there is no history of malignancy, follow-up adren al CT in 12 months is recommended. If there is partial history of malignancy, adrenal CT is recommend ed. Reviewed, dictated and finalized at location F. E SLITTER AND INSPECTOR IMPRESSION: 1. Bilateral inguinal hernias with short segment of nonobstructed colon and in the left inguinal hernia and a short segment of nonobstructed small bowel in th e right inguinal hernia. 2. Cholelithiasis without evidence of cholecystitis. 3. Left nephrolithiasis, nonobstructing. 4. Severe lumbar spondylosis without acute findings. 5. 1.4 cm right adrenal nodule, likely adenoma. If there is no history of malig katja, follow-up adrenal CT in 12 months is recommended. If there is partial hi story of malignancy, adrenal CT is recommended.
--- NOTE | ~2023-02-06 | XR_ITS ---
EXAMINATION: XR chest 1V INDICATION: Altered mental status TECHNIQUE: AP view of the chest is obtained. COMPARISON: 02/11/2022 FINDINGS: The lungs are free of acute opacities. No pleural effusion or pneumothorax. The cardiomedia stinal silhouette is normal. IMPRESSION: 1. No acute osseous abnormality. Reviewed, dictated and finalized at location F. TH AIDE
--- NOTE | ~2023-02-06 | CT_ITS ---
EXAMINATION: CT brain wo con INDICATION: Altered mental status COMPARISON: 02/11/2022 TECHNIQUE: Standard unenhanced head CT. The dose-length product (DLP) was 681.00 mGy-cm. The mA was a djusted according to patient size. Iterative reconstruction technique was employed. FINDINGS: Streak artifact from a right cochlear implant limits examination of the right frontotemporo parietal region. No acute intraparenchymal hemorrhage. No evidence of mass lesion. No evidence of acu te infarction. There is mild periventricular and subcortical hypodensity probably related to small ve ssel ischemic disease. There is mild prominence of the sulci and ventricles related to cerebral atrop hy. Intracranial calcified cerebral atherosclerosis is noted. No extra-axial collections. No mass eff ect or midline shift. The orbits and soft tissues are unremarkable. There is a polyp or mucous retent ion cyst of the right maxillary sinus. Changes of partial right mastoidectomy for cochlear implant in [facility] are noted. IMPRESSION: 1. No acute intracranial abnormality. 2. Age related findings. Reviewed, dictated and finalized at location F. O VISUAL PROJECT MANAGER
--- NOTE | ~2023-02-06 | XR_ITS ---
EXAM: XR lumbar spine 2-3V DATE: 02/07/2023 13:31 HISTORY: MID TO LOW BACK PAIN . COMPARISON: CT abdomen pelvis lumbar spine, same date. FINDINGS: 5 nonrib-bearing lumbar-type vertebral bodies. Mild lumbar scoliosis. Pedicles intact. Mul tilevel minimal grade 1 retrolistheses, likely on a degenerative basis. Vertebral body heights preser dc. Multilevel moderate disc space narrowing and marginal osteophytosis. Multilevel moderate facet s clerosis and hypertrophy. No fracture or dislocation. Surgical vero and clips over the lower pelvi s. Excreted contrast in the urinary bladder IMPRESSION: Multilevel minimal grade 1 retrolistheses. Multilevel moderate degenerative disc disease. Multilevel moderate facet arthropathy. Reviewed, dictated and finalized at location K. OWS VMWARE ADMINISTRATOR IMPRESSION: Multilevel minimal grade 1 retrolistheses. Multilevel moderate dege nerative disc disease. Multilevel moderate facet arthropathy.
[2023-02-06 22:06] VITALS: BP 140/85; PULSE 71; RESP 14; TEMP 36.9; O2SAT 99
--- NOTE | 2023-02-06 22:24 | ECG_ITS ---
Measurements Intervals [place] Rate: 66 P: 53 [place]: 175 QRS: -53 QRSD: 112 T: 30 QT: 392 QTc: 411 Interpretive Statements SINUS RHYTHM LEFT ANTERIOR FASCICULAR BLOCK VOLTAGE CRITERIA FOR LVH, CONSIDER NORMAL VARIANT Electronically Signed On 02-07-2023 10:29:12 [employer] by Sami Fleming M.D.
[2023-02-06 22:58] LABS: Basophils Percent Auto 0.4 % (0.2-1.2); Eosinophils Absolute Auto 0.1 K/mm3 (0-0.3); Eosinophils Percent Auto 0.7 % (0-4.4); Immature Granulocyte Absolute 0.03 K/mm3 (0.00-0.031); Immature Granulocyte Percent A 0.3 % (0-0.5); Lymphocytes Absolute Auto 1.53 K/mm3 (0.9-3.2); Lymphocytes Percent Auto 15.8 % (18.3-44.2); Mean Corpuscular HGB Conc 33.3 g/dl (32-36); Mean Corpuscular Hemoglobin 31.7 pg (26-34); Mean Corpuscular Volume 95.2 fl (80-100); Mean Platelet Volume 10.9 fl (7.4-10.4); Monocytes Absolute Auto 1.1 K/mm3 (0.1-0.6); Monocytes Percent Auto 11.1 % (2.6-8.5); Neutrophils Absolute Auto 6.9 K/mm3 (1.3-6.7); Neutrophils Percent Auto 71.7 % (45.5-73.1); Platelet Count Result 213 k/mm3 (150-375); Red Blood Count 4.41 M/mm3 (4.6-6.20); Red Cell Distribution Width 13.1 % (11.5-14.5); White Blood Count 9.7 K/mm3 (4.5-10.0)
[2023-02-06 23:13] LABS: Acetaminophen < 10 ug/mL (10-30); Salicylate < 1.0 mg/dL (2-20)
[2023-02-06 23:14] LABS: Alanine Aminotransferase 15 U/L (6-50); Albumin Level 3.9 g/dL (3.5-5.1); Alkaline Phosphatase 56 U/L (38-126); Anion Gap 8 mmol/L (8-16); Aspartate Amino Transferase 32 U/L (17-59); Bilirubin,Total 0.9 mg/dL (0.2-1.3); Blood Urea Nitrogen 26 mg/dL (9-20); Calcium 8.8 mg/dL (8.4-10.2); Carbon Dioxide 21 mmol/L (22-30); Chloride 110 mmol/L (98-107); Estimated Glomerular Filt Rate 48; Glucose 107 mg/dL (65-110); Potassium 4.5 mmol/L (3.4-5.0); Sodium 139 mmol/L (137-145)
[2023-02-06 23:26] LABS: INR 1.1; Prothrombin Time 14.8 Seconds (11.1-14.7)
[2023-02-06 23:52] VITALS: PULSE 59
[2023-02-07] VITALS (10 sets, daily range): BP systolic 135–161; BP diastolic 48–67; PULSE 50–87; RESP 14–26; TEMP 36.5–36.6; O2SAT 97–100; BMI 25.8
[2023-02-07 00:51] LABS: Appearance Urine Clear (Clear); Bilirubin Urine Negative (Negative); Blood Urine Negative (Negative); Color Urine Yellow (Yellow); Glucose Urine UA Negative (Negative); Ketones Urine Trace mg/dL (Negative); Leukocyte Esterase Ur Negative LEU/UL (Negative); Nitrate Urine Negative (Negative); Protein Urine Negative (Negative); Specific Grav Ur 1.029 (1.001-1.035); Urobilinogen Urine 0.2 mg/dL (<2.0); pH Urine 5.5 (5.0-9.0)
[2023-02-07 01:07] LABS: Add Urine Microscopic? NO
--- NOTE | 2023-02-07 02:21 | ED.GENADULT ---
HPI - General Adult General Chief complaint: Unspecified Stated complaint: abd pain Time Seen by Provider: 02/06/23 22:51 History of Present Illness HPI narrative: Patient is a poor historian and frequently tells alternating inversions of events. This is an 82-year-old male presenting for altered mental status. Patient was brought in by his son and [id number]. They say his behavior has become increasingly erratic and unpredictable especially over the last 3 months. The patient has declined started when his of 63 years 1 year ago. Now he is starting have bizarre behavior such as screaming at his neighbor's house at night and then getting into his car. Grabbing his gun and running outside. He also called the police repeatedly. The family no longer believes it is safe for him to live at home despite taking at 1st her move his car all of his guns. The patient himself is complaining of some lower back pain. Originally the patient told me that started just prior to arrival, however now he is telling me that it started yesterday when he was walking his dog got pulled. Patient is also complaining of some abdominal discomfort after eating some rotisserie chicken. He then accused his son trying to poison him with reduce recheck in. Patient is denying fever chills chest pain breathing nausea vomiting or urinary symptoms. Related Data Home Medications Medication Instructions Recorded Confirmed cyanocobalamin (vitamin B-12) 1,000 mcg PO DAILY 06/04/22 06/05/22 1,000 mcg tablet Allergies Allergy/AdvReac Type Severity Reaction Status Date / Time Sulfa (Sulfonamide Allergy Mild Unknown Verified 02/06/23 22:08 Antibiotics) [facility] Past Medical History Medical History At high risk for falls Benign essential tremor BMI 27.0-27.9,adult BPH (benign prostatic hyperplasia) Cochlear implant in place Creatinine elevation Elevated PSA PSA 15.6 with free PSA 5.5 on 05/11/2022. Grieving Hearing impairment cochlear implant Right ear History of kidney stones HTN (hypertension) with goal to be determined Insomnia Overweight (BMI 25.0-29.9) Parkinson's syndrome (~2021) father and brother with Parkinson's. UTI (urinary tract infection) (~05/11/22) urinalysis with WBC, trace blood, and protein 05/11/2022. Vitamin B12 deficiency (05/11/22) level low at 344 with goal greater than 400 with hemoglobin 14.9 and folic acid 7.5 on 05/11/2022. (~01/18/22) of 63 years of marriage 01/18/2022 Surgical History Surgical History H/O cystoscopy Stone extraction H/O inguinal hernia repair H/O lithotripsy History of ureter stent Family History Family History Father Malignant neoplasm of prostate Sibling Malignant neoplasm of prostate Social History Social History (Updated 05/05/22 @ 08:47 by Saima London MA) Social History: The patient lives home alone. The patient is now his this past December. He has 1 son and he has 2 living daughters. He had 1 daughter from suicide. The patient is retired from [employer]. He is a former smoker. He does not drink any alcohol use any marijuana or illicit drugs. -code status full code Smoking status: Former smoker Alcohol intake: never Alcohol use details: 2 beers daily Substance use: never Substance use type: does not use Lack of Transportation: No Lack of Food: Never True Current Housing: I Have Housing Concerned About Future Housing: No Difficulty Paying Gas/Electric Bills: No Difficulty Paying for Meds: No Currently Unemployed: No Education: High School Diploma/GED Difficulty w/ Childcare or Family Care: No Living arrangements: alone Occupation/Education: retired Gender identity (if verbalized by the patient): Male Spiritual care concerns: No
[2023-02-07 05:24] LABS: Influenza A QL RT-PCR Negative (Negative); Influenza B QL RT-PCR Negative (Negative); RSV RNA, RT-PCR Negative (Negative); SARS-CoV-2 RNA PCR Negative (Negative)
--- NOTE | 2023-02-07 07:38 | PC.NURSE ---
Breakfast ordered for patient at this time
--- NOTE | 2023-02-07 10:27 | PM.IMHP ---
H&P: HPI History of Present Illness Date/Time: 02/07/23 10:27 Chief Complaint: Mental status change Narrative: History is taken from a emergency room notes and family. Patient is a poor historian and frequently tells alternating inversions of events. This is an 82-year-old male presenting for altered mental status.? Patient was brought in by his son and [id number].? They say his behavior has become increasingly erratic and unpredictable especially over the last 3 months.? The patient has declined started when his of 63 years 1 year ago.? Now he is starting have bizarre behavior such as screaming at his neighbor's house at night and then getting into his car.? Grabbing his gun and running outside.? He also called the police repeatedly.? The family no longer believes it is safe for him to live at home despite taking at 1st her move his car all of his guns. The patient himself is complaining of some lower back pain.? Originally the patient told me that started just prior to arrival, however now he is telling me that it started yesterday when he was walking his dog got pulled.? Patient is also complaining of some abdominal discomfort after eating some rotisserie chicken.? He then accused his son trying to poison him with reduce recheck in.? Patient is denying fever chills chest pain breathing nausea vomiting or urinary symptoms. Review of Systems Review of Systems: All systems reviewed & are unremarkable except as noted in HPI and below (the history and physical exam.) [facility] Past Medical History Medical History At high risk for falls Benign essential tremor BMI 27.0-27.9,adult BPH (benign prostatic hyperplasia) Cochlear implant in place Creatinine elevation Elevated PSA PSA 15.6 with free PSA 5.5 on 05/11/2022. Grieving Hearing impairment cochlear implant Right ear History of kidney stones HTN (hypertension) with goal to be determined Insomnia Overweight (BMI 25.0-29.9) Parkinson's syndrome (~2021) father and brother with Parkinson's. UTI (urinary tract infection) (~05/11/22) urinalysis with WBC, trace blood, and protein 05/11/2022. Vitamin B12 deficiency (05/11/22) level low at 344 with goal greater than 400 with hemoglobin 14.9 and folic acid 7.5 on 05/11/2022. (~01/18/22) of 63 years of marriage 01/18/2022 Surgical History Surgical History H/O cystoscopy Stone extraction H/O inguinal hernia repair H/O lithotripsy History of ureter stent Family History Family History Father Malignant neoplasm of prostate Sibling Malignant neoplasm of prostate Social History Social History Social History: The patient lives home alone. The patient is now his this past December. He has 1 son and he has 2 living daughters. He had 1 daughter from suicide. 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 He is a former smoker. He does not drink any alcohol use any marijuana or illicit drugs. -code status full code Smoking status: Former smoker Alcohol intake: never Alcohol use details: 2 beers daily Substance use: never Substance use type: does not use Lack of Transportation: No Lack of Food: Never True Current Housing: I Have Housing Concerned About Future Housing: No Difficulty Paying Gas/Electric Bills: No Difficulty Paying for Meds: No Currently Unemployed: No Education: High School Diploma/GED Difficulty w/ Childcare or Family Care: No Living arrangements: alone Occupation/Education: retired Gender identity (if verbalized by the patient): Male Spiritual care concerns: No Meds Home Medications and Allergies Home Medications Medication Instructions Recorded Confirmed Type doxazosin 4 mg tablet 4 mg PO HS #90 tabs 05/05/22 06/05/22 Rx
[2023-02-07] MEDS: OLANZapine 5 MG TABLET PO (17:43)
[2023-02-07] MEDS: DOXAZOSIN MESYLATE 4 MG TABLET PO (17:52)
[2023-02-07] MEDS: traZODone HCL 50 MG TABLET PO (18:50)
[2023-02-08 05:41] LABS: Alanine Aminotransferase 12 U/L (6-50); Albumin Level 3.5 g/dL (3.5-5.1); Alkaline Phosphatase 66 U/L (38-126); Anion Gap 2 mmol/L (8-16); Aspartate Amino Transferase 28 U/L (17-59); Bilirubin,Total 0.8 mg/dL (0.2-1.3); Blood Urea Nitrogen 17 mg/dL (9-20); Calcium 8.9 mg/dL (8.4-10.2); Carbon Dioxide 27 mmol/L (22-30); Chloride 111 mmol/L (98-107); Estimated CRCL calculation 44 ml/min; Estimated Glomerular Filt Rate 58; Glucose 91 mg/dL (65-110); Potassium 3.5 mmol/L (3.4-5.0); Sodium 140 mmol/L (137-145)
[2023-02-08 07:46] VITALS: BP 153/54; PULSE 58; RESP 16; TEMP 36.4; O2SAT 100
[2023-02-08] MEDS: ENOXAPARIN 40 MG/0.4 ML SYRINGE SUB-Q (08:46)
[2023-02-08] MEDS: DEXTROSE 5%/0.45% SOD CHL 1,000 ML 50 ML IV CONT (08:46)
[2023-02-08] MEDS: DOXAZOSIN MESYLATE 4 MG TABLET PO ×2 (08:46→19:56)
[2023-02-08 08:51] VITALS: BP 165/70; PULSE 72; RESP 14; O2SAT 100
--- NOTE | 2023-02-08 12:48 | PM.IMPN ---
Progress Note: A&P Assessment and Plan (1) Mental status change resolved: Code(s): Z86.59 - Personal history of other mental and behavioral disorders Status: Acute Assessment and Plan: CT brain negative CXR negative BC pending UA negative (2) Dementia: Code(s): F03.90 - Unspecified dementia, unspecified severity, without behavioral disturbance, psychotic disturbance, mood disturbance, and anxiety Status: Acute Assessment and Plan: Continue current treatment Neurology consulted - will be back tomorrow Care coordination for skilled nursing placement (3) Mild dehydration: Code(s): E86.0 - Dehydration Status: Acute Assessment and Plan: IVF and monitor BUN creatinine. (4) BPH (benign prostatic hyperplasia): Code(s): N40.0 - Benign prostatic hyperplasia without lower urinary tract symptoms Status: Acute Assessment and Plan: Stable continue current treatment Plan Code status full. DVT prophylaxis ordered. Subjective Date/time seen: 02/08/23 12:48 Interval history: Patient is sitting up in chair, in no acute distress. He is a poor historian. He believes he donated large amounts of money to establish a private wing of this hospital. He is A&O x3 and has no complaint other than back pain. Neurology consulted and won't be here until tomorrow. Psych was consulted by ED, but not available here. Care coordination consulted for possible placement as family has concerns and he currently lives by himself. Review of Systems Review of Systems: All systems reviewed & are unremarkable except as noted in HPI and below (the history and physical exam.) Exam Narrative: GENERAL: Awake, al ert, conversant. N o acute distress, well nourished. No t disheveled. HE AD: Normocephalic, atraumatic. EYES: PERRLA and EOMI. ENT: Nares clear, no rhinorrhea or e pistaxis. Mucous m embranes moist.? C ochlear implants b ilaterally. NECK: Supple. CHEST: No respiratory distre ss, lungs clear to auscultation bila terally HEART: RRR . ABDOMEN: Non di stended, non tende r. BS present and active. EXTREMITI ES: Normal range o f motion. No edema . SKIN: Warm, dry, no rash. NEURO:No focal deficits. A lert and oriented x3 Psych: delusion al state at presen t. No SI Objective Data Vital Signs Vital Signs: Vital Signs - 24 hr 02/07/23 14:00 02/07/23 19:28 02/07/23 20:00 Temperature 97.7 F 97.8 F Pulse Rate 64 60 60 Respiratory Rate 14 16 16 Blood Pressure 150/50 H 153/58 H Pulse Oximetry 99 99 99 Oxygen Delivery Room Air 02/08/23 07:46 02/08/23 08:51 02/08/23 08:45 Temperature 97.6 F Pulse Rate 58 L 72 Respiratory Rate 16 14 Blood Pressure 153/54 H 165/70 H Pulse Oximetry 100 100 Oxygen Delivery Room Air Intake/Output Intake/Output: Intake & Output 02/05/23 02/06/23 02/07/23 02/08/23 23:59 23:59 23:59 23:59 Intake Total 480 1040 Balance 480 1040 Meds/Results Medications: Active Medications Generic Name Dose Route Start Last Admin Trade Name Freq PRN Reason Stop Dose Admin Acetaminophen 325 mg 02/07/23 10:39 Acetaminophen 325 Mg Tablet PO Q6H PRN Back pain Doxazosin Mesylate 4 mg 02/08/23 09:00 02/08/23 08:46 Doxazosin Mesylate 4 Mg Tablet PO 4 mg DAILY KATERYNA Administration Doxazosin Mesylate 4 mg 02/07/23 21:00 02/07/23 17:52 Doxazosin Mesylate 4 Mg Tablet PO 4 mg HS KATERYNA Administration Enoxaparin Sodium 40 mg 02/08/23 09:00 02/08/23 08:46 Enoxaparin 40 Mg/0.4 Ml Syringe SUB-Q 40 mg DAILY KATERYNA Administration Dextrose/Sodium Chloride 1,000 mls @ 50 mls/hr 02/07/23 10:35 02/08/23 08:46 Dextrose 5% Sodium Chloride 0.45% IV CONT 50 mls/hr .Q20H KATERYNA Administration Olanzapine 5 mg 02/07/23 21:00 02/07/23 17:43 Olanzapine 5 Mg Tablet PO 5 mg QHS KATERYNA Administration Olanzapine 10 mg
[2023-02-08 14:00] VITALS: BP 135/54; PULSE 84; RESP 14; TEMP 36.4; O2SAT 97
[2023-02-08] MEDS: OLANZapine 5 MG TABLET PO (19:56)
[2023-02-08] MEDS: traZODone HCL 50 MG TABLET PO (19:56)
[2023-02-08 19:57] VITALS: PULSE 84; RESP 14; O2SAT 97
[2023-02-08 22:00] VITALS: BP 144/77; PULSE 79; RESP 14; TEMP 36.6; O2SAT 97
[2023-02-09 06:25] LABS: Hematocrit 38.6 % (42.0-52.0); Hemoglobin 13.1 g/dL (14.0-18.0); Mean Corpuscular HGB Conc 33.9 g/dl (32-36); Mean Corpuscular Hemoglobin 31.8 pg (26-34); Mean Corpuscular Volume 93.7 fl (80-100); Mean Platelet Volume 11.1 fl (7.4-10.4); Platelet Count Result 208 k/mm3 (150-375); Red Blood Count 4.12 M/mm3 (4.6-6.20); Red Cell Distribution Width 12.9 % (11.5-14.5); White Blood Count 6.9 K/mm3 (4.5-10.0)
[2023-02-09 06:39] VITALS: BP 136/58; PULSE 70; RESP 16; TEMP 36.4; O2SAT 98
[2023-02-09 06:41] LABS: Anion Gap 5 mmol/L (8-16); Blood Urea Nitrogen 16 mg/dL (9-20); Calcium 8.8 mg/dL (8.4-10.2); Carbon Dioxide 28 mmol/L (22-30); Chloride 108 mmol/L (98-107); Estimated CRCL calculation 44 ml/min; Estimated Glomerular Filt Rate 58; Glucose 100 mg/dL (65-110); Potassium 3.6 mmol/L (3.4-5.0); Sodium 141 mmol/L (137-145)
[2023-02-09] MEDS: ENOXAPARIN 40 MG/0.4 ML SYRINGE SUB-Q (09:20)
[2023-02-09] MEDS: DOXAZOSIN MESYLATE 4 MG TABLET PO ×2 (09:20→21:20)
--- NOTE | 2023-02-09 10:29 | WPDNEURCNPN ---
Assessment and Plan Assessment and plan (1) Dementia: Code(s): F03.90 - Unspecified dementia, unspecified severity, without behavioral disturbance, psychotic disturbance, mood disturbance, and anxiety Status: Acute Plan ongoing dementia with acute psychosis will benefit from the placement and the psychiatric care. CT scan does not reveal any evidence of bleed or space-occupying lesion. A routine EEG can be obtained if he is cooperative. Consult date: 02/09/23 HPI: Obey Jameson is a 82 year old maleAdmitted to the hospital for the complaints of change in mental status was brought to the ER by his son and daughter in-law with information that his behavior had become increasingly retic over the last 3 months and has significantly declined his of 63 years 1 year ago he is screaming at his neighbor's house at night and getting into his car grabbing the gun and running outside he has also call the police repeatedly and he has no more safe at home for himself he is also complaining of low back pain of [id number] duration since his dog pulled him up. He has been taking cyanocobalamin B12 1000mcg daily, he is allergic to sulfa, he does have ongoing history of benign essential tremor, cochlear implant in place, in the right ear and also history of Parkinson's syndrome in addition to B12 deficiency is a former smoker by history Never alcohol intake the takes 2 beers daily initial exam in the emergency room revealed him to have no focal neurological signs vital signs were normal and he was admitted to the hospital with the diagnosis of dementia with depression his routine labs were normal except BUN 26 creatinine 1.40 he was continued on the same medications. Because of his complaint of low back pain lumbar spine x-rays were done in the emergency room in addition to CT scan of the head which revealed no bleed or space-occupying lesion except the age-related findings and lumbar spine the x-rays only documented grade 1 retrolisthesis with moderate degenerative disc disease PMFSH Past Medical History Medical History At high risk for falls Benign essential tremor BMI 27.0-27.9,adult BPH (benign prostatic hyperplasia) Cochlear implant in place Creatinine elevation Elevated PSA PSA 15.6 with free PSA 5.5 on 05/11/2022. Grieving Hearing impairment cochlear implant Right ear History of kidney stones HTN (hypertension) with goal to be determined Insomnia Overweight (BMI 25.0-29.9) Parkinson's syndrome (~2021) father and brother with Parkinson's. UTI (urinary tract infection) (~05/11/22) urinalysis with WBC, trace blood, and protein 05/11/2022. Vitamin B12 deficiency (05/11/22) level low at 344 with goal greater than 400 with hemoglobin 14.9 and folic acid 7.5 on 05/11/2022. (~01/18/22) of 63 years of marriage 01/18/2022 Surgical History Surgical History H/O cystoscopy Stone extraction H/O inguinal hernia repair H/O lithotripsy History of ureter stent Family History Family History Father Malignant neoplasm of prostate Sibling Malignant neoplasm of prostate Social History Social History Social History: The patient lives home alone. The patient is now his this past December. He has 1 son and he has 2 living daughters. He had 1 daughter from suicide. The patient is retired from [employer] post [employer]. He is a former smoker. He does not drink any alcohol use any marijuana or illicit drugs. -code status full code Smoking status: Former smoker Second hand tobacco smoke exposure: Yes Alcohol intake: current Drinks per week: 3 Alcohol use details: 2 beers daily Substance use: never Substance use type: does not use Lack of Transportation: No Lack of Food: Never True Current Prashant
[2023-02-09 14:00] VITALS: BP 141/61; PULSE 83; RESP 18; TEMP 37; O2SAT 100
--- NOTE | 2023-02-09 14:38 | PM.DS ---
DS: Admitting Diagnosis Discharge Date 02/09/23 Admitting Diagnosis altered mental status DS: Discharge Diagnosis Discharge Diagnosis (1) Mental status change resolved: Code(s): Z86.59 - Personal history of other mental and behavioral disorders Status: Acute Assessment and Plan: CT brain negative CXR negative BC pending UA negative follow up with psychiatrist outpatient (2) Dementia: Code(s): F03.90 - Unspecified dementia, unspecified severity, without behavioral disturbance, psychotic disturbance, mood disturbance, and anxiety Status: Acute Assessment and Plan: Continue current treatment Neurology consulted - recommended EEG but clear to d/c without needs to follow up with psychiatrist outpatient Care coordination following (3) Mild dehydration: Code(s): E86.0 - Dehydration Status: Resolved (4) BPH (benign prostatic hyperplasia): Code(s): N40.0 - Benign prostatic hyperplasia without lower urinary tract symptoms Status: Chronic Assessment and Plan: Stable, continue current treatment DS: Summary Hospital Course Hospital Course: Patient is sitting up in chair, in no acute distress. He is a poor historian. He is A&O x3 and has no complaint other than mild back pain. Neurology consulted and believes he is more appropriate for a psych evaluation. EEG ordered but confirmed with Naseer he is cleared to d/c without. Psych was consulted by ED, but not available here. Care coordination consulted for possible placement as family has concerns and he currently lives by himself. Patient and family have elected for him to go home for the time being and follow up outpatient with PCP for psych referral as we don't have one here. Status at Discharge Functional status at discharge: independent ambulation Overall status at discharge: patient is not back to baseline Time Spent with Patient Time attestation: Total time spent providing and/or coordinating discharge services: Exam Narrative: GENERAL: Awake, al ert, conversant. N o acute distress, well nourished. No t disheveled. HE AD: Normocephalic, atraumatic. EYES: PERRLA and EOMI. ENT: Nares clear, no rhinorrhea or e pistaxis. Mucous m embranes moist.? C ochlear implants b ilaterally. NECK: Supple. CHEST: No respiratory distre ss, lungs clear to auscultation bila terally HEART: RRR . ABDOMEN: Non di stended, non tende r. BS present and active. EXTREMITI ES: Normal range o f motion. No edema . SKIN: Warm, dry, no rash. NEURO:No focal deficits. A lert and oriented x3 Psych: flat, ap propriate. No SI DS: Data Data Completed and Pending Labs on day of discharge: Labs from last 24 hours 02/09/23 06:00 WBC 6.9 RBC 4.12 L Hgb 13.1 L Hct 38.6 L MCV 93.7 MCH 31.8 MCHC 33.9 RDW 12.9 Plt Count 208 MPV 11.1 H Sodium 141 Potassium 3.6 Chloride 108 H Carbon Dioxide 28 Anion Gap 5 L BUN 16 Creatinine 1.20 Estim Creat Clear Calc 44 Estimated GFR 58 L Glucose 100 Calcium 8.8 Preliminary micro results at discharge 02/07/23 11:41 Blood Culture - Preliminary Blood 02/07/23 11:55 Blood Culture - Preliminary Blood Discharge Plan Discharge Attending physician on discharge: Wilton Lua Consulting providers: Diana Cerrato Discharging Clinician: Rekha Moncada Anticipated Discharge Date/Time: 02/09/23 12:12 Patient Disposition: Home, Self-Care Activity: as tolerated Diet: regular Discharge Instructions: Follow up with your primary care provider for your back pain. You can request to have your imaging done here to be sent to them. Follow up with your primary care provider for a referral to a mental health provider. Patient Instructions: Antibiotic Form Stand Alone Forms: General Discharge Information Follow-up/Referrals: Jaime Lenz MD [Primary Care Prov
[2023-02-09 19:35] VITALS: BP 140/58; PULSE 68; RESP 18; TEMP 36.6; O2SAT 100
[2023-02-09] MEDS: traZODone HCL 50 MG TABLET PO (21:20)
[2023-02-09] MEDS: OLANZapine 5 MG TABLET PO (21:20)
== END 2023-02-09 21:40 | disposition home or self-care (01) ==
LOC: ANHED 02-07 06:08 → ANH2MED 02-07 12:09 → ANH3MEDSUR 02-10 07:49
PROVIDERS: Internal Medicine; Nurse Practitioner; Admitting Provider Internal Medicine; Emergency Provider Emergency Medicine; PCP Family Medicine; Visit Provider Internal Medicine
DX: R41.82 Altered mental status, unspecified (principal); G20.C Parkinsonism, unspecified; F02.82 Dementia in other diseases classified elsewhere, unspecified severity, with psychotic disturbance; E86.0 Dehydration; N40.0 Benign prostatic hyperplasia without lower urinary tract symptoms; K57.30 Diverticulosis of large intestine without perforation or abscess without bleeding; K40.20 Bilateral inguinal hernia, without obstruction or gangrene, not specified as recurrent; K80.20 Calculus of gallbladder without cholecystitis without obstruction; N20.0 Calculus of kidney; Z23 Encounter for immunization; I44.4 Left anterior fascicular block; E27.9 Disorder of adrenal gland, unspecified; M47.816 Spondylosis without myelopathy or radiculopathy, lumbar region; I10 Essential (primary) hypertension; M54.50 Low back pain, unspecified; R10.9 Unspecified abdominal pain; E53.8 Deficiency of other specified B group vitamins; Z96.21 Cochlear implant status; Z87.891 Personal history of nicotine dependence; Z20.822 Contact with and (suspected) exposure to COVID-19; Z79.899 Other long term (current) drug therapy
CPT/HCPCS: 36415; 70450; 71045; 72100; 72132; 74177; 80048; 80053; 80307; 81003; 85025; 85027; 85610; 85730; 87040; 87086; 87637; 90471; 90694; 93005; 96372; 97161; 97165; 99285; A9270; G0008; G0378; J1650; Q9967

== ENCOUNTER 2023-02-11 06:34 | Emergency (ER) | payer MEDICARE, SELFPAY ==
[2023-02-11 06:30] VITALS: BP 156/67; PULSE 87; RESP 18; TEMP 36.3; O2SAT 97
--- NOTE | 2023-02-11 07:01 | PC.NURSE ---
Family at bedside.
--- NOTE | 2023-02-11 07:15 | ED.GENADULT ---
HPI - General Adult General Chief complaint: Altered Mental Status Stated complaint: Confusion/ Environmen exposure Time Seen by Provider: 02/11/23 07:02 History of Present Illness HPI narrative: 82 year old male with history of dementia presenting to the emergency department for evaluation after walking around at night time. Patient was found wandering the street this morning. Patient does have dementia at baseline. Patient was admitted here last week and upon discharge patient declined placement into a shelter. Family 1st attempted to get home health but they are not available until next week. Patient was found wandering around in the night but patient was dressed weather appropriate. Patient denies any complaints. Family is requesting help from care coordination to seek NH placement. Related Data Allergies Allergy/AdvReac Type Severity Reaction Status Date / Time Sulfa (Sulfonamide Allergy Mild Unknown Verified 02/11/23 06:45 Antibiotics) Review of Systems Review of Systems: All systems reviewed & are unremarkable except as noted in HPI and below PMFSH Past Medical History Medical History At high risk for falls Benign essential tremor BMI 27.0-27.9,adult BPH (benign prostatic hyperplasia) Cochlear implant in place Creatinine elevation Elevated PSA PSA 15.6 with free PSA 5.5 on 05/11/2022. Grieving Hearing impairment cochlear implant Right ear History of kidney stones HTN (hypertension) with goal to be determined Insomnia Overweight (BMI 25.0-29.9) Parkinson's syndrome (~2021) father and brother with Parkinson's. UTI (urinary tract infection) (~05/11/22) urinalysis with WBC, trace blood, and protein 05/11/2022. Vitamin B12 deficiency (05/11/22) level low at 344 with goal greater than 400 with hemoglobin 14.9 and folic acid 7.5 on 05/11/2022. (~01/18/22) of 63 years of marriage 01/18/2022 Surgical History Surgical History H/O cystoscopy Stone extraction H/O inguinal hernia repair H/O lithotripsy History of ureter stent Family History Family History Father Malignant neoplasm of prostate Sibling Malignant neoplasm of prostate Social History Social History Social History: The patient lives home alone. The patient is now his this past December. He has 1 son and he has 2 living daughters. He had 1 daughter from suicide. 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 He is a former smoker. He does not drink any alcohol use any marijuana or illicit drugs. -code status full code Smoking status: Former smoker Second hand tobacco smoke exposure: Yes Alcohol intake: current Drinks per week: 3 Alcohol use details: 2 beers daily Substance use: never Substance use type: does not use Lack of Transportation: No Lack of Food: Never True Current Housing: I Have Housing Concerned About Future Housing: No Difficulty Paying Gas/Electric Bills: No Difficulty Paying for Meds: No Currently Unemployed: No Education: High School Diploma/GED Difficulty w/ Childcare or Family Care: No Living arrangements: alone Occupation/Education: retired Gender identity (if verbalized by the patient): Male Spiritual care concerns: No Exam Narrative: APPEARANCE: Well appearing, no pain, no distress, well-nourished. HEAD: normocephalic, atraumatic. EYES: PERRLA/EOMI, conjunctivae clear. NOSE: Normal no drainage EARS:TMS clear with good light reflex. THROAT: Pharynx clear, no exudate. NECK: Supple. No adenopathy, no masses. RESPIRATORY: Airway patent, respirations nonlabored. Clear to auscultation bilaterally, no rales, rhonchi, wheezing. CARDIOVASCULAR: Regular rate and rhythm without murmurs rubs or gallops. ABDOMINAL: Soft, nontender, nondistended, normal bow
--- NOTE | 2023-02-11 07:54 | PCCCNOTE ---
Met with pt, son Candido & STEPHANIE Jj. Pt discharged home from here 02/09. He did well at home yesterday and then wondered from home at 4 am. Security program did not notify son. Family has interview with [facility] for home care next week. [facility] previously accepted pt for a respite period or day by day. Family would like to have him go there today. Call placed to Kelly with [facility] and they need to get a room ready and have all the paperwork they need including the provider certificate and are able to accept him today. Call placed to Candido and abraham. He requests pt go by ambulance for safety reasons. Waiting return call from Kelly when they are ready to accept.
--- NOTE | 2023-02-11 07:59 | PC.NURSE ---
regular diet breakfast tray ordered
[2023-02-11 11:18] VITALS: BP 148/86; PULSE 80; RESP 16; O2SAT 97
== END 2023-02-11 12:06 ==
PROVIDERS: Emergency Provider Emergency Medicine; PCP Family Medicine
DX: F03.90 Unspecified dementia, unspecified severity, without behavioral disturbance, psychotic disturbance, mood disturbance, and anxiety (principal); G20.C Parkinsonism, unspecified; I10 Essential (primary) hypertension; N40.0 Benign prostatic hyperplasia without lower urinary tract symptoms; E66.3 Overweight; Z68.26 Body mass index [BMI] 26.0-26.9, adult; E53.8 Deficiency of other specified B group vitamins; Z87.440 Personal history of urinary (tract) infections; Z87.442 Personal history of urinary calculi; Z87.891 Personal history of nicotine dependence
CPT/HCPCS: 99283